=== PATIENT | female | born 1990 | race Caucasian/White ===

== ENCOUNTER 2016-08-31 19:54 | Observation (INO) | payer MEDICARE, MEDICAID ==
[~2016-08-31] VITALS: Ht 157.5 cm; Wt 102.0 kg
[2016-08-31 20:25] LABS: DAU SCREEN DISCLAIMER
[2016-08-31 20:37] LABS: BLOOD UREA NITROGEN 9 mg/dL (7-18)
[2016-08-31] MEDS ORDERED: LORazepam 1MG TABLET ONE (20:37)
[2016-08-31 20:43] LABS: ASPARTATE AMINO TRANSFERASE 23 U/L (15-37)
[2016-08-31 20:44] LABS: ACETAMINOPHEN < 2 mcg/mL (10-30)
[2016-08-31] MEDS ORDERED: PLEASE ENTER ALLERGIES MC SCH ×2 (21:00)
[2016-08-31] MEDS ORDERED: LORazepam 1MG TABLET PO ONE (21:00)
[2016-08-31] MEDS ORDERED: [UNRECOGNIZED DRUG - CODE] TP (21:35)
[2016-08-31] MEDS ORDERED: [UNRECOGNIZED DRUG - CODE] TP (21:35)
[2016-08-31] MEDS ORDERED: KETO15CR2 TP (21:35)
[2016-08-31] MEDS ORDERED: FLUO40CA2 PO (21:35)
[2016-08-31] MEDS ORDERED: HYDR25TA11 PO (21:35)
[2016-08-31] MEDS ORDERED: QUET100T PO (21:35)
[2016-08-31] MEDS ORDERED: LEVO1TAB25 PO (21:35)
[2016-09-01] MEDS ORDERED: ZIPRASIDONE 20 MG INJ IM ONE ×2 (01:07→01:30)
[2016-09-01] MEDS ORDERED: BISACODYL 10 MG SUPP PR PRN (05:00)
[2016-09-01] MEDS ORDERED: DOCUSATE 100 MG CAPSULE PO PRN (05:00)
[2016-09-01] MEDS ORDERED: ACETAMINOPHEN 325 MG TABLET PO PRN (05:00)
[2016-09-01] MEDS ORDERED: POLYETHYLENE GLYCOL 17 GM PACKET PO PRN (05:00)
[2016-09-01] MEDS ORDERED: ONDANSETRON ODT 4 MG PO PRN (05:00)
[2016-09-01 05:21] VITALS: BP 130/86
[2016-09-01 07:42] VITALS: BP 136/84
[2016-09-01] MEDS: LEVONORGESTREL ETH ESTRADIOL HOMEMEDPO SCH (09:00)
[2016-09-01] MEDS: LAMOTRIGINE 25 MG TABLET PO SCH (10:06)
[2016-09-01 19:35] VITALS: BP 132/89
[2016-09-01] MEDS: QUETIAPINE 100MG TABLET PO SCH (20:11)
[2016-09-02 07:36] VITALS: BP 111/74
[2016-09-02] MEDS: LAMOTRIGINE 25 MG TABLET PO SCH (08:31)
[2016-09-02] MEDS: LEVONORGESTREL ETH ESTRADIOL HOMEMEDPO SCH (08:42)
[2016-09-02 19:45] VITALS: BP 132/86
[2016-09-02] MEDS: QUETIAPINE 100MG TABLET PO SCH (20:43)
[2016-09-03 07:42] VITALS: BP 105/72
[2016-09-03] MEDS: LEVONORGESTREL ETH ESTRADIOL HOMEMEDPO SCH (09:00)
[2016-09-03] MEDS: LAMOTRIGINE 25 MG TABLET PO SCH (09:04)
[2016-09-03 20:00] VITALS: BP 112/66
[2016-09-03] MEDS: QUETIAPINE 100MG TABLET PO SCH (21:01)
[2016-09-04 08:16] VITALS: BP 107/76
[2016-09-04] MEDS: LEVONORGESTREL ETH ESTRADIOL HOMEMEDPO SCH (08:26)
[2016-09-04] MEDS: LAMOTRIGINE 25 MG TABLET PO SCH (08:26)
[2016-09-04 19:34] VITALS: BP 146/94
[2016-09-04] MEDS: QUETIAPINE 100MG TABLET PO SCH (21:53)
[2016-09-05 07:28] VITALS: BP 120/92
[2016-09-05] MEDS: LAMOTRIGINE 25 MG TABLET PO SCH (08:12)
[2016-09-05] MEDS: LEVONORGESTREL ETH ESTRADIOL HOMEMEDPO SCH (17:30)
[2016-09-05 20:01] VITALS: BP 125/83
[2016-09-05] MEDS: QUETIAPINE 100MG TABLET PO SCH (21:07)
[2016-09-06 08:16] VITALS: BP 120/77
[2016-09-06] MEDS: LEVONORGESTREL ETH ESTRADIOL HOMEMEDPO SCH (09:00)
[2016-09-06] MEDS: LAMOTRIGINE 25 MG TABLET PO SCH (09:23)
== END 2016-09-06 15:35 ==
LOC: ED 21:49 → EDIP 09-01 02:16 → 3E 09-01 05:10
PROVIDERS: ADMIT Internal Medicine; ATTEND Internal Medicine
DX: F31.9 Bipolar disorder, unspecified (principal); R45.851 Suicidal ideations; R82.71 Bacteriuria; F41.9 Anxiety disorder, unspecified; Z79.899 Other long term (current) drug therapy; Z91.5 Personal history of self-harm
CPT/HCPCS: 36415; 80053; 80307; 80329; 81001; 84439; 84443; 84703; 85025; 87086; 96372; 99285; G0378; J3486; Q0162; Q0177; G0480

== ENCOUNTER 2018-07-01 22:07 | Emergency (ER) | payer MEDICARE, MEDICAID ==
[~2018-07-01] VITALS: Ht 160 cm; Wt 125.0 kg
[~2018-07-01 22:07] MED LIST: FLUO40CA2 PO; HYDR25TA11 PO; KETO15CR17 TP; LEVO1TAB25 PO; QUET100T PO; [UNRECOGNIZED DRUG - CODE] TP; [UNRECOGNIZED DRUG - CODE] TP
[2018-07-01 22:33] LABS: BASOPHILS # (AUTO) 0.04 x10^3/uL (0-0.1); BASOPHILS % (AUTO) 1 % (0-1); EOSINOPHILS # (AUTO) 0.12 x10^3/uL (0-0.4); EOSINOPHILS % (AUTO) 1 % (1-7); LYMPHOCYTES # (AUTO) 1.77 x10^3/uL (1-3.4); LYMPHOCYTES % (AUTO) 22 % (22-44); MD NO; MEAN CORPUSCULAR HEMOGLOBIN 31.5 pg (27.0-34.8); MEAN CORPUSCULAR HGB CONC 33.7 g/dL (32.4-35.8); MEAN CORPUSCULAR VOLUME 93.7 fL (80-100); MEAN PLATELET VOLUME 8.7 fL (7.4-10.4); MONOCYTES # (AUTO) 0.68 x10^3/uL (0.2-0.8); MONOCYTES % (AUTO) 8 % (2-9); NEUTROPHILS # (AUTO) 5.59 x10^3/uL (1.8-6.8); NEUTROPHILS % (AUTO) 68 % (42-75); PLATELET COUNT 342 x10^3/uL (130-400); RED BLOOD COUNT 4.21 x10^6/uL (3.82-5.3); RED CELL DISTRIBUTION WIDTH 12.9 % (9.6-15.2)
--- NOTE | 2018-07-01 22:40 | NUR ---
PT BIB [facility] TONIGHT WITH ABDOMINAL PAIN. PT WAS WALKING AROUND DOWNTOWN AND GOT COLD. PT STATES THAT SHE IS AUTISTIC AND HAS DEVELOPMENTAL DELAYS. PT EDUCATED ON ER PROCESS AND POC AND VERBALIZES UNDERSTANDING. PT HAS CALL LIGHT WITHIN REACH AT THIS TIME. PT DENIES ANY OTHER NEEDS AT THIS TIME.
[2018-07-01 22:45] LABS: ALANINE AMINOTRANSFERASE 19 U/L (12-78); ALBUMIN 3.4 g/dL (3.4-5.0); ANION GAP 12 mmol/L (5-15); CHLORIDE 111 mmol/L (98-107); CREATININE 0.98 mg/dL (0.55-1.02)
[2018-07-01 22:48] LABS: ALKALINE PHOSPHATASE 77 U/L (45-117); BILIRUBIN,TOTAL 0.5 mg/dL (0.2-1.0); TOTAL PROTEIN 6.9 g/dL (6.4-8.2)
--- NOTE | 2018-07-01 23:15 | NUR ---
URINE SENT TO LAB.
[2018-07-01 23:20] LABS: CULTURE INDICATED? YES; HCG UR SG 1.041 (1.003-1.030); MICROSCOPIC INDICATED
[2018-07-01 23:53] VITALS: BP 130/71
--- NOTE | 2018-07-02 00:06 | NUR ---
PT D/C WITH D/C SUMMARY AND SCRIPTS. ALL QUESTIONS ANSWERED. 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 PT VERBALIZES UNDERSTANDING OF NEED FOR ABX THERAPY AND DENIES ANY OTHER NEEDS PERTAINING TO THIS VISIT. PT AMBULATES TO REGISTRATION DESK WITH STEADY GAIT. PT CALLING [facility] FOR VEHICLE FOR D/C HOME.
== END 2018-07-02 00:10 | disposition home or self-care (01) ==
LOC: ED 23:14
DX: N30.00 Acute cystitis without hematuria (principal); F31.9 Bipolar disorder, unspecified; Z87.891 Personal history of nicotine dependence
CPT/HCPCS: 36415; 80053; 81001; 81025; 83690; 85025; 87086; 99283